=== PATIENT | male | born 1990 | race Caucasian/White ===

== ENCOUNTER 2017-02-09 17:46 | Emergency (ER) | payer OTHER ==
[~2017-02-09] VITALS: Ht 177.8 cm; Wt 104.3 kg
[2017-02-09 17:46] VITALS: BP 131/90
--- NOTE | 2017-02-09 19:18 | NUR ---
RECEIVED REPORT FROM [facility]. PT APPEARS COMFORTABLE.
--- NOTE | 2017-02-09 19:23 | NUR ---
PT BACK FROM CT SCAN
== END 2017-02-09 20:08 | disposition home or self-care (01) ==
LOC: ER 17:50
DX: M54.5 Low back pain (principal); F17.200 Nicotine dependence, unspecified, uncomplicated
CPT/HCPCS: 72110-TC; A4606; J1885; J3360; Z7610

== ENCOUNTER 2019-01-04 18:47 | Emergency (ER) | payer OTHER ==
[~2019-01-04] VITALS: Ht 175.3 cm; Wt 99.8 kg
--- NOTE | 2019-01-04 20:03 | NUR ---
TO BED 4 CHRONIC LOWER BACK PAIN,WORSE IN PAST 2 DAYS, TRIED TO PUSH HEAVY OBJECT. PT AAOX4 NO ACUTE DISTRESS NOTED, RESP EVEN AND UNLABORED. PENDING ER MD [facility].
[2019-01-04] MEDS ORDERED: KETOROLAC TROMETHAMINE INJ 30 MG/ML VIAL ONE (20:47)
[2019-01-04] MEDS ORDERED: DEXAMETHASONE SOD PHOSPHATE 10 MG/ML VIAL ONE (20:47)
[2019-01-04] MEDS ORDERED: DEXAMETHASONE SOD PHOSPHATE 10 MG/ML VIAL IM ONE (21:00)
[2019-01-04] MEDS ORDERED: KETOROLAC TROMETHAMINE INJ 60 MG/2 ML VIAL IM ONE (21:00)
--- NOTE | 2019-01-04 21:04 | NUR ---
Patient discharged to home in stable condition. Written and verbal after care instructions given. Patient verbalizes understanding of instruction. ambulatory with a steady gait
[2019-01-04 21:05] VITALS: BP 127/76
== END 2019-01-04 21:06 | disposition home or self-care (01) ==
LOC: ER 18:49
DX: M51.36 Other intervertebral disc degeneration, lumbar region (principal); G89.29 Other chronic pain; F17.200 Nicotine dependence, unspecified, uncomplicated
CPT/HCPCS: 96372 ×2; 99283; J1100; J1885